=== PATIENT | female | born 1945 | race Caucasian/White ===

== ENCOUNTER 2022-11-24 06:27 | Emergency (ER) | payer MEDICARE, OTHER, SELFPAY ==
[2022-11-24 06:38] VITALS: BP 148/64; PULSE 62; RESP 18; TEMP 36.4; O2SAT 96; BMI 27.5
[2022-11-24] MEDS: Famotidine/PF 20 MG/2 ML VIAL IVPUSH (06:58)
[2022-11-24] MEDS: diphenhydrAMINE HCL 50 MG/ML VIAL IVPUSH (06:58)
[2022-11-24] MEDS: methylPREDNISolone Sod Succ 125 MG/2 ML VIAL IVPUSH (06:58)
--- NOTE | 2022-11-24 06:58 | ED.ALLEREA ---
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 She states she woke up with the right side of her tongue swollen and numb. She states around 04:00 she developed some difficulty swallowing and sensation of throat swelling. She feels that the anterior aspect of her neck is more swollen than usual. She denies any changes in her voice, shortness of breath, wheezing, lip swelling. She does not have any new medications or foods. She has history of similar reactions to Phenergan, Norvasc, and other medications. She is being followed by an leather sponger and was due for allergy testing today. She had a history of similar presentation last week and was recently on Benadryl for this. She denies any rashes. She has been on labetalol for her blood pressure with no allergic reactions noted. MD complaint: allergic reaction Onset (ago): hour(s) (8) Exposure: unknown Known history of allergy to: Lisinopril, multiple blood pressure medications Symptoms: difficulty swallowing and tongue swelling Severity: moderate Treatment prior to arrival: none Previous Allergic Reaction History: prior ED visit(s) and angioedema Related Data Previous Rx's Medication Instructions Recorded diphenhydramine HCl 25 mg capsule 50 mg PO TID #30 caps 11/24/22 (Benadryl) famotidine 40 mg tablet (Pepcid) 40 mg PO DAILY #7 tabs 11/24/22 prednisone 20 mg tablet 40 mg PO DAILY #10 tabs 11/24/22 Allergies Allergy/AdvReac Type Severity Reaction Status Date / Time amlodipine [From NORVASC] Allergy Unknown UNKNOWN Unverified 02/23/20 15:26 carvedilol [From COREG] Allergy Unknown DIFFICULTY Unverified 02/23/20 15:26 BREATHING lisinopril [LISINOPRIL] Allergy Unknown ANGIOEDEMA Unverified 02/23/20 15:26 mold [MOLD] Allergy Unknown DIFFICULTY Unverified 02/23/20 15:26 BREATHING promethazine [From PHENERGAN] Allergy Unknown ANGIOEDEMA Unverified 02/23/20 15:26 DANDER Allergy Unknown DIFFICULTY Uncoded 02/23/20 15:26 BREATHING Review of Systems Review of Systems: Yes all other systems are reviewed and are negative [facility] Social History Social History Alcohol intake: never Smoked in Last 30 Days: No Use of substances other than those prescribed or required for medical reasons: No Advance Directives: Yes Advance Directives Information Provided: No Advance Directives on File: No Physical Exam ED Vital Signs: Vital Signs - 24 hr 11/24/22 06:38 11/24/22 08:09 Temperature 97.5 F Pulse Rate 62 55 Respiratory Rate 18 15 Blood Pressure 148/64 H 114/50 L Pulse Oximetry 96 96 Oxygen Delivery Method Room Air Room Air BMI result Body Mass Index 27.5 Appearance: Alert. Oriented X3. No acute distress. Head: normocephalic, atraumatic. Eyes: Pupils equal, round and reactive to light. ENT: normal external inspection. no lip swelling. trace tongue swelling on the right side with red area c/w bite injury. airway patient. no sublingual swelling, normal voice. No tonsillar swelling or exudate. Neck: Trace anterior neck swelling proximally. Neck supple. CVS: Normal heart rate and rhythm. Pulses normal. Respiratory: No respiratory distress. Breath sounds normal. Abdomen: Soft and nontender. +BS x4 Skin: Skin warm and dry. Normal skin color. Normal skin turgor. No rashes. Extremities: No lower extremity edema. No joint swelling. Neuro/psych: Oriented X 3. No motor deficit. No sensory deficit. CN II-XII intact. Normal speech and cognition. Course Reevaluation(s) Reevaluation #1: Patient reported significant improvement in her symptoms after a dose of IV Solu-Medrol, Benadryl, Pepcid. Her tongue swelling is resolved. She still feels slight difference in her throat but her airway is patent and she is breathing comfortably. At this time comfortable discharge home, she has been monitored in the ER for over 2 hours with movement in her symptoms. She will be discharged with oral prednisone and Benadryl. Medications Administered Discontinued Medications Generic Name Dose Route Start Last Admin Trade Name Freq PRN Reason Stop Dose Admin Diphenhydramine HCl 50 mg 11/24/22 06:49 11/24/22 06:58 Diphenhydramine Hcl 50 Mg/Ml Vial IVPUSH 11/24/22 06:50 50 mg ONCE ONE Administration Famotidine 20 mg 11/24/22 06:49 11/24/22 06:58 Famotidine/Pf 20 Mg/2 Ml Vial IVPUSH 11/24/22 06:50 20 mg ONCE ONE Administration Methylprednisolone Sodium Succinate 125 mg 11/24/22 06:49 11/24/22 06:58 Methylprednisolone Sod Succ 125 Mg/2 Ml Vial IVPUSH 11/24/22 06:50 125 mg ONCE ONE Administration Medical Decision Making Medical Decision Making MDM Narrative: 77-year-old female with history angioedema and multiple allergic reactions manifesting with tongue swelling and difficulty swallowing presents the ER for evaluation of tongue swelling and difficulty swallowing that started 8 hours ago. She is unclear of the etiology. She has been on labetalol for blood pressure for several years. She has history of these types of reactions to clonidine, Norvasc, Phenergan in the past. She is following closely with an leather sponger. She is due for allergy testing but needs to be off of the Benadryl for 5 days. On arrival to the ER her vital signs are stable. Her airway is patent and she is speaking and normal, complete sentences. She has trace swelling of the right tongue, and sensation of throat swelling, difficulty swallowing. Her Lungs are clear without any wheezing. Given her symptoms, IV was established, Solu-Medrol Benadryl, Pepcid was given. She was monitored the ER for over 2 hours. Patient's symptoms improved significantly and she was deemed stable for discharge home with close outpatient follow-up with her leather sponger. Will discharge home with prednisone, Benadryl, Pepcid. She was given strict return precautions and is stable for DC Differential Diagnosis Differential Diagnoses: The differential diagnosis associated with the presentation includes anaphylaxis, angioedema, allergic reaction Admission/Observation Consideration of admission/observation: Escalation of care including admission/observation considered concern for airway involvement, admission considered Prescription Management I considered prescription management with: Other (Prednisone and antihistamines) Chronic Conditions Patient?s care impacted by: Other (Recurrent allergic reactions) Critical Care Time Critical Care Time Critical Care Time: Yes Total Critical Care Time: 35 Attestation: I have personally provided critical care time exclusive of time spent on separately billable procedures. Time includes close bedside monitoring, cardiopulmonary monitoring and monitoring for potential decompensation. Intervention performed as documented. Discharge Plan Discharge Clinical Impression: Allergic reaction Patient Disposition: Home, Self-Care Instructions: General Allergic Reaction (ED) Additional Instructions: take the prescribed prednisone, benadryl and pepcid as directed follow up with your leather sponger. If you develop new or worsening symptoms call 911 or come back to the ER for further evaluation. Prescriptions: New prednisone 20 mg tablet 40 mg PO DAILY Qty: 10 0RF diphenhydramine HCl [Benadryl] 25 mg capsule 50 mg PO TID Qty: 30 0RF famotidine [Pepcid] 40 mg tablet 40 mg PO DAILY Qty: 7 0RF Interventions: ED Discharge Assessment Last Done: 11/24/22 10:00 Discharge Date/Time: 11/24/22 10:01
--- OUTSIDE RECORDS SUMMARY | 2022-11-24 07:23 | XMS_ITS | Continuity of Care Document ---
Author Name Unknown Organization [facility] Address [address] [place] [address], [address] [place] [address]- Care Team Providers Care Manager Strategy & Account Name Role Phone Hai Mayen MD Primary Care Physician [facility] [id number] Date(s): 01/22/22 - 02/21/22 [facility] [address] [place] [address], [address] [place], [place] [address] Attending Physician: Admtr, Ar8 Admitting Physician: Admtr, ArMerary Referring Physician: Admtr, Ar8 Allergies, Adverse Reactions, Alerts Substance Reaction Severity Status Sulfur Active Medications Lisinopril By Mouth, Daily, 0 Refills, Maintenance Start Date: 09/27/12 Status: Ordered Care Team Personnel Name: Hai Mayen MD Address: [address] [place] [address]
--- NOTE | 2022-11-24 07:31 | PC.NURSE ---
PT SPEECH REMAINS THICK, NO SWALLOW CONCERNS, SCREENING COMPLETED, SHE WAS PLACED ON THE TELE MONITOR, REMAINS A+O, NO RESPIRATORY INVOLVEMENT
[2022-11-24 08:09] VITALS: BP 114/50; PULSE 55; RESP 15; O2SAT 96
== END 2022-11-24 10:01 | disposition home or self-care (01) ==
PROVIDERS: Emergency Provider Student in an Organized Health Care Education/Training Program; PCP Family Medicine
DX: L50.0 Allergic urticaria (principal)
CPT/HCPCS: 96374; 96375; 99284; J1200; J2930

== ENCOUNTER 2023-01-22 21:06 | Emergency (ER) | payer MEDICARE, OTHER, SELFPAY ==
--- NOTE | 2023-01-22 21:15 | PC.NURSE ---
pt came into triage stating she is covid+ and asking if she needs the paxlovid medication since she is over 65. this RN educated the patient on the paxlovid medication and how it is typically prescribed for high risk patients over 65 with covid+ (i.e. Hx lung issues etc.). pt states she has no lung problems, no significant medical history, no Hx asthma, etc. this RN told patient she is more than welcome to wait and be seen by one of the providers in the back and request the medication from them but patient states she does not think they really need it as it is day 4 of exposure and patient is not having any chest pains, shortness of breath, or oxygenation issues, etc.. pt states if things worsen she will return to ER or call her pcp but as of now she does not want to wait to be seen as she is asymptomatic, ambulatory with no issues, no respiratory compromise,. A&Ox4.
== END 2023-01-22 21:20 | disposition left against medical advice (07) ==
PROVIDERS: Emergency Provider Emergency Medicine
DX: U07.1 COVID-19 (principal)

== ENCOUNTER 2023-10-03 01:48 | Emergency (ER) | payer MEDICARE, OTHER, SELFPAY ==
--- NOTE | 2023-10-03 | ECG_ITS ---
Test Reason : DYSPENIA Blood Pressure : / mmHG Vent. Rate : 057 BPM Atrial Rate : 057 BPM P-R Int : 164 ms QRS Dur : 076 ms QT Int : 468 ms P-R-T Axes : 055 019 049 degrees QTc Int : 455 ms Sinus bradycardia Low voltage QRS Nonspecific T wave abnormality Abnormal ECG No previous ECGs available Referred By: Andreia Garcia Electronically Signed By:SKYLER THIBODEAUX MD
[2023-10-03 01:59] VITALS: BP 143/58; BP 160/90; PULSE 61; PULSE 80; RESP 14; TEMP 36.4; O2SAT 98; BMI 28.0
[2023-10-03 02:01] VITALS: BP 143/58; PULSE 61; RESP 14; TEMP 36.4; O2SAT 98
--- NOTE | 2023-10-03 02:18 | ED_ITS ---
HPI - General Adult General Chief complaint: Dyspnea Stated complaint: SOB Time Seen by Provider: 10/03/23 01:55 Source: patient and EMS Mode of arrival: EMS Limitations: no limitations History of Present Illness HPI narrative: Patient comes to the emergency room complaining of throat swelling. 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 Patient states that she is allergic to certain blood pressure medication, and is being tested for some environmental allergies. Patient states that approximately 3 hours ago, patient started feeling a bit of swelling around her throat. Patient states that she took Zyrtec and Pepcid at home. Patient states that she has no difficulty breathing or swallowing. He is feels that there is a lump in her throat. Denies swelling anywhere else. Related Data Previous Rx's ?Medication ?Instructions ?Recorded diphenhydramine HCl 25 mg capsule 50 mg (2 x 25 mg) PO TID #30 caps 11/24/22 (Benadryl) famotidine 40 mg tablet (Pepcid) 40 mg PO DAILY #7 tabs 11/24/22 prednisone 20 mg tablet 40 mg (2 x 20 mg) PO DAILY #10 tabs 11/24/22 diphenhydramine HCl 25 mg capsule 50 mg (2 x 25 mg) PO TID PRN 10/03/23 (Benadryl) allergic reaction #14 caps famotidine 40 mg tablet (Pepcid) 40 mg PO BID PRN allergic reaction 10/03/23 #14 tabs Allergies Allergy/AdvReac Type Severity Reaction Status Date / Time amlodipine [From NORVASC] Allergy Unknown UNKNOWN Verified 10/03/23 02:01 carvedilol [From COREG] Allergy Unknown DIFFICULTY Verified 10/03/23 02:01 BREATHING lisinopril [LISINOPRIL] Allergy Unknown ANGIOEDEMA Verified 10/03/23 02:01 mold [MOLD] Allergy Unknown DIFFICULTY Verified 10/03/23 02:01 BREATHING promethazine [From PHENERGAN] Allergy Unknown ANGIOEDEMA Verified 10/03/23 02:01 DANDER Allergy Unknown DIFFICULTY Uncoded 10/03/23 02:01 BREATHING Review of Systems 2 Review of Systems: Constitutional : No Weight loss, No Fever, No Chills, No Night Sweats, No Fatigue, No Malaise ENT/Mouth : No Hearing loss, complaining of throat discomfort, No Ear Pain, No Nasal Congestion, No Sinus Pain, No Hoarseness, No sore throat, No Rhinorrhea, No Swallowing Difficulty Eyes: No Eye Pain, No Swelling, No Redness, No Foreign Body, No Discharge, No Vision Changes Cardiovascular : No Chest Pain, No SOB, No Dyspnea on Exertion, No Orthopnea, No Edema, No Palpitations Respiratory : No Cough, No Sputum, No Wheezing, No Smoke Exposure, No Dyspnea Gastrointestinal : No Nausea, No Vomiting, No Diarrhea, No Constipation, No abdominal Pain, No Hematochezia, No Melena Genitourinary : no irregular bleeding, No Dysuria, No Urinary Frequency, No Hematuria, No Urinary Incontinence, No Urgency, No Flank Pain, No Urinary Flow Changes, No Hesitancy Musculoskeletal : No joint pain, No Myalgias, No Joint Swelling Skin : No Skin Lesions, No rash Neuro : No Weakness, No Numbness, No Paresthesias, No Loss of Consciousness, No Dizziness, No Headache Psych : No Anxiety/Panic, No Depression, No SI/HI/AH/VH, No Social Issues, Heme/Lymph: No Bruising, No Bleeding,No Lymphadenopathy Endocrine : No Polyuria, No Polydipsia, No Temperature Intolerance [facility] Past Medical History Medical History (Updated 10/03/23 @ 05:54 by Andreia Garcia MD) Angioedema Social History Social History Alcohol intake: never Smoked in Last 30 Days: No Use of substances other than those prescribed or required for medical reasons: No Advance Directives: No Advance Directives Information Provided: Yes Do you have a plan to hurt others: No Plan Physical Exam ED Vital Signs: Vital Signs - 24 hr 10/03/23 01:59 10/03/23 02:01 10/03/23 03:44 Temperature 97.6 F 97.6 F 97.4 F Pulse Rate 61 61 59 Respiratory Rate 14 14 12 Blood Pressure 143/58 H 143/58 H 127/43 L Pulse Oximetry 98 98 96 Oxygen Delivery Method Room Air Room Air Room Air BMI result Body Mass Index 28.0 Const Other: Appearance: Alert. Oriented X3. No acute distress. Eyes: Pupils equal, round and reactive to light. ENT: Pharynx seems to be a bit edematous, no obvious airway obstruction. Patient is swallowing without difficulty and breathing within normal limits Neck: Normal inspection. Neck supple. No lymph nodes noted. No crepitus CVS: Normal heart rate and rhythm. Pulses normal. Normal S1 and S2 Respiratory: No respiratory distress. Breath sounds normal. No Wheezing. No rales Abdomen: Soft and nontender. No rigidity. No distention. Skin: Skin warm and dry. Normal skin color. Normal skin turgor. Extremities: No lower extremity edema. No Lacerations. No Rash Neuro: Oriented X 3. No motor deficit. No sensory deficit. Moving all extremities. No slurred speech. CN 2 through 12 grossly intact Psych: calm, cooperative, normal affect Course Course Course Narrative: -patient given IV Pepcid and Benadryl. Patient declined Solu-Medrol or prednisone p.o.. Medications Administered Discontinued Medications Generic Name Dose Route Start Last Admin Trade Name Freq PRN Reason Stop Dose Admin Diphenhydramine HCl 50 mg 10/03/23 02:14 10/03/23 02:29 Diphenhydramine Hcl 50 Mg/Ml Vial IVPUSH 10/03/23 02:15 50 mg ONCE ONE Administration Famotidine 20 mg 10/03/23 02:14 10/03/23 02:29 Famotidine/Pf 20 Mg/2 Ml Vial IVPUSH 10/03/23 02:15 20 mg ONCE ONE Administration Medical Decision Making Medical Decision Making MDM Narrative: -patient feeling much better, states that she is still has a little sensation of something in her throat. However, she feels much more improved. Denies any trouble swallowing, no trouble breathing. Patient states that she overall improved significantly. -oropharynx looks normal, uvula midline -I discussed with the patient that ideally she should be receiving Solu-Medrol as well, patient adamant that she does not want it. Discussed with the patient that she received the last time she was here, but patient states that this time her symptoms are less severe and would like to skip it altogether. -my interpretation of labs: Patient's potassium slightly decreased, patient agreeable to take p.o. potassium. Differential Diagnosis Differential Diagnoses: The differential diagnosis associated with the presentation includes (Angioedema, allergic reaction) Admission/Observation Consideration of admission/observation: Escalation of care including admission/observation considered (Given patient's history in symptoms, admission was considered) Lab Data MDM Lab Attestation statement: I reviewed the patient's lab results. 10/03/23 02:36 10/03/23 02:36 Labs: Lab Results 10/03/23 Range/Units 02:36 WBC 11.1 H (4.8-10.8) X10*3/uL RBC 4.27 (4.20-5.50) X10*6/uL Hgb 13.2 (12.0-16.0) g/dl Hct 37.6 (37.0-47.0) % MCV 88.1 (80.0-98.0) fL MCH 30.9 (27.0-33.0) pg MCHC 35.1 H (31.0-35.0) g/dl RDW 13.1 (11.0-16.0) % Plt Count 146 L (160-400) X10*3/uL MPV 10.5 (9.4-12.3) fL Immature Gran % (Auto) 0.3 (0.0-0.4) % Neut % (Auto) 71.4 (45-73) % Lymph % (Auto) 16.1 L (20-40) % Scott % (Auto) 9.8 (2-11) % Eos % (Auto) 1.9 (0-4) % Baso % (Auto) 0.5 (0-2) % Lymph # (Auto) 1.8 (1.2-4.9) X10*3/uL Scott # (Auto) 1.1 (0.1-1.2) X10*3/uL Eos # (Auto) 0.2 (0.0-0.4) X10*3/uL Baso # (Auto) 0.1 (0.0-0.2) X10*3/uL Abs Immat Gran (auto) 0.03 (0.00-0.03) X10*3/uL Absolute Neuts (auto) 7.9 (2.0-8.3) x10*3/uL Absolute Nucleated RBC 0.000 (0.0-0.012) X10*3/uL Nucleated RBC % (auto) 0.0 (0.0-0.2) /100WBC Sodium 141 (135-145) mmol/L Potassium 3.1 L (3.3-5.1) mmol/L Chloride 102 (96-108) mmol/L Carbon Dioxide 26 (22-29) mmol/L Anion Gap 16 (12-20) BUN 19 H (9-16) mg/dL Creatinine 0.97 (0.5-1.4) mg/dL Estim Creat Clear Calc 44.3 Estimated GFR 56 Random Glucose 106 (60-115) mg/dL Fasting Glucose 107 H (60-99) mg/dL Calcium 9.4 (8.4-10.2) mg/dL Total Bilirubin 0.5 (0.0-1.0) mg/dL AST 27 (5-31) U/L ALT 26 (0-31) U/L Alkaline Phosphatase 60 (39-117) U/L Total Protein 7.1 (6.5-8.0) g/dL Albumin 4.0 (3.5-5.0) g/dL Critical Care Time Critical Care Time Critical Care Time: Yes Total Critical Care Time: 45 Attestation: I have personally provided critical care time. Time includes review of lab data, radiology results, discussion with consultants, and monitoring for potential decompensation. Intervention performed as documented. Discharge Plan Discharge Clinical Impression: Angioedema, Acute hypokalemia Patient Disposition: Home, Self-Care Instructions: Angioedema (ED) Additional Instructions: Please follow-up with your primary care physician tomorrow. If you have any worsening or new symptoms, please return to the emergency room or call 911 Prescriptions: New diphenhydramine HCl [Benadryl] 25 mg capsule 50 mg PO TID PRN (Reason: allergic reaction) Qty: 14 0RF famotidine [Pepcid] 40 mg tablet 40 mg PO BID PRN (Reason: allergic reaction) Qty: 14 0RF No Action prednisone 20 mg tablet 40 mg PO DAILY Qty: 10 0RF diphenhydramine HCl [Benadryl] 25 mg capsule 50 mg PO TID Qty: 30 0RF famotidine [Pepcid] 40 mg tablet 40 mg PO DAILY Qty: 7 0RF Print Language: Niuean
[2023-10-03] MEDS: Famotidine/PF 20 MG/2 ML VIAL IVPUSH (02:29)
[2023-10-03] MEDS: diphenhydrAMINE HCL 50 MG/ML VIAL IVPUSH (02:29)
[2023-10-03 02:41] LABS: MANUAL DIFF FLAG NO
[2023-10-03 02:42] LABS: Basophils Absolute Auto 0.1 X10*3/uL (0.0-0.2); Basophils Percent Auto 0.5 % (0-2); Eosinophils Absolute Auto 0.2 X10*3/uL (0.0-0.4); Eosinophils Percent Auto 1.9 % (0-4); Hematocrit 37.6 % (37.0-47.0); Hemoglobin 13.2 g/dl (12.0-16.0); Imm Gran Abs Auto 0.03 X10*3/uL (0.00-0.03); Imm Gran Pct Auto 0.3 % (0.0-0.4); Lymphocytes Absolute Auto 1.8 X10*3/uL (1.2-4.9); Lymphocytes Percent Auto 16.1 % (20-40); Mean Corpuscular HGB Conc 35.1 g/dl (31.0-35.0); Mean Corpuscular Hemoglobin 30.9 pg (27.0-33.0); Mean Corpuscular Volume 88.1 fL (80.0-98.0); Mean Platelet Volume 10.5 fL (9.4-12.3); Monocytes Absolute Auto 1.1 X10*3/uL (0.1-1.2); Monocytes Percent Auto 9.8 % (2-11); Neutrophils Absolute Auto 7.9 x10*3/uL (2.0-8.3); Neutrophils Percent Auto 71.4 % (45-73); Platelet Count 146 X10*3/uL (160-400); Red Blood Count 4.27 X10*6/uL (4.20-5.50); Red Cell Distribution Width 13.1 % (11.0-16.0); White Blood Count 11.1 X10*3/uL (4.8-10.8)
[2023-10-03 02:56] LABS: Alanine Aminotransferase 26 U/L (0-31); Alkaline Phosphatase 60 U/L (39-117); Anion Gap 16 (12-20); Aspartate Amino Transferase 27 U/L (5-31); Bilirubin Total 0.5 mg/dL (0.0-1.0); Blood Urea Nitrogen 19 mg/dL (9-16); Calcium 9.4 mg/dL (8.4-10.2); Carbon Dioxide 26 mmol/L (22-29); Chloride 102 mmol/L (96-108); Creatinine Clr Calc Pharmacy 44.3; Estimated Glomerular Filt Rate 56; Glucose Fasting 107 mg/dL (60-99); Glucose Random 106 mg/dL (60-115); Potassium 3.1 mmol/L (3.3-5.1); Sodium 141 mmol/L (135-145); Total Protein 7.1 g/dL (6.5-8.0)
[2023-10-03 03:44] VITALS: BP 127/43; PULSE 59; RESP 12; TEMP 36.3; O2SAT 96
[2023-10-03] MEDS: Potassium Chloride Packet 20 MEQ PACKET 40 MEQ PO (05:56)
[2023-10-03 06:04] VITALS: BP 127/43; PULSE 59; RESP 11; TEMP 36.3; O2SAT 96
== END 2023-10-03 06:05 | disposition home or self-care (01) ==
PROVIDERS: Emergency Provider Emergency Medicine
DX: T78.3XXA Angioneurotic edema, initial encounter (principal); E87.6 Hypokalemia
CPT/HCPCS: 36415; 80048; 80053; 85025; 93005; 96374; 96375; 99284; 99285; J1200

== ENCOUNTER → 2023-10-03 02:19 | Outpatient (BNV) | payer MEDICARE, OTHER, SELFPAY | PROVIDERS: Emergency Provider Emergency Medicine; Visit Provider Internal Medicine Cardiovascular Disease | DX: R94.31 Abnormal electrocardiogram [ECG] [EKG] (principal) | CPT/HCPCS: 93010 ==

== ENCOUNTER 2023-10-08 02:21 | Emergency (ER) | payer MEDICARE, OTHER, SELFPAY ==
[2023-10-08 02:24] VITALS: BP 143/61; PULSE 69; RESP 16; TEMP 36.9; O2SAT 96; BMI 26.0
--- NOTE | 2023-10-08 02:45 | ED.ALLEREA ---
HPI - Allergic Reaction General Chief complaint: Allergic Reaction Stated complaint: swollen throat, allergic reaction Time Seen by Provider: 10/08/23 02:36 Source: patient and family () Mode of arrival: ambulatory Limitations: no limitations History of Present Illness HPI narrative: 78-year-old female who presents emergency department for evaluation of lip , face swelling and a hoarse voice which began at around 19:45 hours. The patient had a similar presentation on 10/03/2023. I did review the no and the patient was treated with Benadryl 50 mg IV and famotidine 20 mg IV. The provider wanted to give the patient Solu-Medrol but she insisted that she was allergic to this medication. I did discuss this with her and she told me that she was given pills which will may have been prednisone the last time she had an allergic reaction and she believes that it made her symptoms worse. I did tell her that Solu-Medrol (methylprednisolone) is different than prednisone and that she would benefit from this drug and that may be by not getting it last time this is why she is continuing to have an allergic reaction. The patient denied pruritic rash, urticaria, shortness of breath. She states that she is being seeing an manager medicare marketing in his being worked up for angioedema and being evaluated for other possible allergens. She has an appointment to see her manager medicare marketing today. She states that her manager medicare marketing prescribed Zyrtec twice a day and Pepcid twice a day for her allergic reactions and she has been compliant with these medications. She takes labetalol and hydrochlorothiazide for blood pressure in his not on an VAL-inhibitor. Related Data Previous Rx's ?Medication ?Instructions ?Recorded diphenhydramine HCl 25 mg capsule 50 mg (2 x 25 mg) PO TID #30 caps 11/24/22 (Benadryl) famotidine 40 mg tablet (Pepcid) 40 mg PO DAILY #7 tabs 11/24/22 prednisone 20 mg tablet 40 mg (2 x 20 mg) PO DAILY #10 tabs 11/24/22 diphenhydramine HCl 25 mg capsule 50 mg (2 x 25 mg) PO TID PRN 10/03/23 (Benadryl) allergic reaction #14 caps famotidine 40 mg tablet (Pepcid) 40 mg PO BID PRN allergic reaction 10/03/23 #14 tabs methylprednisolone 4 mg tablets in 4 mg PO DAILY #21 ea 10/08/23 a dose pack (Medrol (Kennedy)) Allergies Allergy/AdvReac Type Severity Reaction Status Date / Time amlodipine [From NORVASC] Allergy Unknown UNKNOWN Verified 10/08/23 02:30 carvedilol [From COREG] Allergy Unknown DIFFICULTY Verified 10/08/23 02:30 BREATHING lisinopril [LISINOPRIL] Allergy Unknown ANGIOEDEMA Verified 10/08/23 02:30 mold [MOLD] Allergy Unknown DIFFICULTY Verified 10/08/23 02:30 BREATHING promethazine [From PHENERGAN] Allergy Unknown ANGIOEDEMA Verified 10/08/23 02:30 DANDER Allergy Unknown DIFFICULTY Uncoded 10/08/23 02:30 BREATHING Review of Systems Review of Systems: Yes all other systems are reviewed and are negative [facility] Past Medical History [facility] Narrative: Past medical history: Hypertension, frequent allergic reactions. Social history: She denies tobacco, alcohol and drug use. Medical History (Updated 10/08/23 @ 06:14 by Ty Gross MD) Angioedema Social History Social History Alcohol intake: never Use of substances other than those prescribed or required for medical reasons: No Advance Directives: No Advance Directives Information Provided: No Do you have a plan to hurt others: No Plan Physical Exam ED Vital Signs: Vital Signs - 24 hr 10/08/23 02:24 10/08/23 05:08 Temperature 98.5 F 98.0 F Pulse Rate 69 59 Respiratory Rate 16 18 Blood Pressure 143/61 H 118/54 L Pulse Oximetry 96 96 Oxygen Delivery Method Room Air Room Air BMI result Body Mass Index 26.0 Vital signs revealed elevated respiratory of 16 and elevated blood pressure of 143/61. Exam: General: Awake, alert in no distress, she does have a hoarse sounding voice Head: Patient has significant swelling of the right side of her face including her lip, cheek and forehead. EENT: Mouth revealed moist membranes with no erythema or exudates, uvula is midline, she has no trismus Neck: Supple, no adenopathy Lung: breath sounds symmetric, no wheezing, rales or rhonchi Chest: symmetric movement, nontender Heart: regular rate and rhythm, normal S1, S2 no murmurs or rubs Abdomen: soft, non-tender, nondistended, normal bowel sounds Back: no vertebral tenderness, no CVAT Extremities: no deformities, moves all extremities symmetrically Neuro: Awake, alert, oriented, normal speech, cranial nerves intact, moves all extremities symmetrically Psych: Pleasant, cooperative Medications Administered Discontinued Medications Generic Name Dose Route Start Last Admin Trade Name Buster PRN Reason Stop Dose Admin Diphenhydramine HCl 50 mg 10/08/23 02:50 10/08/23 03:13 Diphenhydramine Hcl 50 Mg/Ml Vial IVPUSH 10/08/23 02:51 50 mg ONCE STA Administration Famotidine 20 mg 10/08/23 02:50 10/08/23 03:13 Famotidine/Pf 20 Mg/2 Ml Vial IVPUSH 10/08/23 02:51 20 mg ONCE ONE Administration Methylprednisolone Sodium Succinate 125 mg 10/08/23 02:50 10/08/23 03:13 Methylprednisolone Sod Succ 125 Mg/2 Ml Vial IVPUSH 10/08/23 02:51 125 mg ONCE ONE Administration Medical Decision Making Medical Decision Making MDM Narrative: 78-year-old female who presents emergency department history of hypertension, frequent allergic reactions presents emergency department for evaluation of lip , face swelling and a hoarse voice which began at around 19:45 hours. Patient also seen in the emergency department on 10/03/2023 for similar allergic reaction of that time she refused IV steroids/Solu-Medrol. Physical examination did reveal an elevated respiratory rate and elevated blood pressure, patient did have right-sided facial swelling consistent with allergic reaction/angioedema. Patient has a hoarse voice suggesting that she does have some posterior pharynx/pharyngeal edema. Patient did not have a pruritic rash or shortness of breath. Differential diagnosis: ?Includes but is not limited to acute allergic reaction, angioedema, adverse reaction to medications Following evaluation was ordered: CBC, CMP Patient was initially treated with the following: Solu-Medrol 125 mg IV, famotidine 20 mg IV, Benadryl 50 mg IV Course: 06:27 My interpretation patient's laboratory evaluation is as follows: CBC was normal. CMP was normal. The patient was observed in the emergency department for approximately 3 hours and during this time her angioedema/facial swelling improved. Her hoarse voice also improved. She did not have any rebound reaction. Patient did not require any IM epinephrine. Patient will be discharged home with Medrol Dosepak 4 mg pills, 6 pills on day 1 then decrease by 1 pill for total of 6 days. Patient was advised to follow-up with her manager medicare marketing for further evaluation and to return to the emergency department if her symptoms got worse. Admission/Observation Consideration of admission/observation: Escalation of care including admission/observation considered Lab Data MDM Lab Attestation statement: I reviewed the patient's lab results. 10/08/23 03:54 10/08/23 03:54 Labs: Lab Results 10/08/23 Range/Units 03:54 WBC 9.4 (4.8-10.8) X10*3/uL RBC 4.17 L (4.20-5.50) X10*6/uL Hgb 12.8 (12.0-16.0) g/dl Hct 37.1 (37.0-47.0) % MCV 89.0 (80.0-98.0) fL MCH 30.7 (27.0-33.0) pg MCHC 34.5 (31.0-35.0) g/dl RDW 12.9 (11.0-16.0) % Plt Count 161 (160-400) X10*3/uL MPV 10.3 (9.4-12.3) fL Immature Gran % (Auto) 0.5 H (0.0-0.4) % Neut % (Auto) 67.8 (45-73) % Lymph % (Auto) 19.3 L (20-40) % [place] % (Auto) 9.5 (2-11) % Eos % (Auto) 2.4 (0-4) % Baso % (Auto) 0.5 (0-2) % Lymph # (Auto) 1.8 (1.2-4.9) X10*3/uL [place] # (Auto) 0.9 (0.1-1.2) X10*3/uL Eos # (Auto) 0.2 (0.0-0.4) X10*3/uL Baso # (Auto) 0.1 (0.0-0.2) X10*3/uL Abs Immat Gran (auto) 0.05 H (0.00-0.03) X10*3/uL Absolute Neuts (auto) 6.4 (2.0-8.3) x10*3/uL Absolute Nucleated RBC 0.000 (0.0-0.012) X10*3/uL Nucleated RBC % (auto) 0.0 (0.0-0.2) /100WBC Sodium 140 (135-145) mmol/L Potassium 3.3 (3.3-5.1) mmol/L Chloride 102 (96-108) mmol/L Carbon Dioxide 26 (22-29) mmol/L Anion Gap 15 (12-20) BUN 17 H (9-16) mg/dL Creatinine 0.96 (0.5-1.4) mg/dL Estim Creat Clear Calc 43.2 Estimated GFR 56 Random Glucose 116 H (60-115) mg/dL Calcium 9.4 (8.4-10.2) mg/dL Total Bilirubin 0.6 (0.0-1.0) mg/dL AST 19 (5-31) U/L ALT 18 (0-31) U/L Alkaline Phosphatase 61 (39-117) U/L Total Protein 6.7 (6.5-8.0) g/dL Albumin 3.8 (3.5-5.0) g/dL Independent Historian Clinical information obtained from an independent historian. History obtained from or confirmed by: Spouse Chronic Conditions Patient?s care impacted by: Hypertension Discharge Plan Discharge Clinical Impression: Allergic reaction Patient Disposition: Home, Self-Care Instructions: General Allergic Reaction (ED) Additional Instructions: On presentation to the emergency department you had significant swelling of your face and lips with no swelling of your tongue. You also had a very hoarse voice suggesting that you had swelling of your throat as well. You were treated with Solu-Medrol (methylprednisolone) 125 mg IV, Benadryl (diphenhydramine) 50 mg IV and Pepcid (famotidine) 20 mg IV. You are monitored in the emergency department for approximately 3 hours and during this time your symptoms improved. I want you to continue taking your Zyrtec and famotidine as prescribed by your manager medicare marketing. Prescriptions: New methylprednisolone [Medrol (Kennedy)] 4 mg tablets,dose pack 4 mg PO DAILY Qty: 21 0RF Rx Instructions: Day 1 take 6 pills then decrease by 1 pill every day for total of 6 days No Action diphenhydramine HCl [Benadryl] 25 mg capsule 50 mg PO TID PRN (Reason: allergic reaction) Qty: 14 0RF famotidine [Pepcid] 40 mg tablet 40 mg PO BID PRN (Reason: allergic reaction) Qty: 14 0RF prednisone 20 mg tablet 40 mg PO DAILY Qty: 10 0RF diphenhydramine HCl [Benadryl] 25 mg capsule 50 mg PO TID Qty: 30 0RF famotidine [Pepcid] 40 mg tablet 40 mg PO DAILY Qty: 7 0RF Print Language: Pashto
[2023-10-08] MEDS: diphenhydrAMINE HCL 50 MG/ML VIAL IVPUSH (03:13)
[2023-10-08] MEDS: Famotidine/PF 20 MG/2 ML VIAL IVPUSH (03:13)
[2023-10-08] MEDS: methylPREDNISolone Sod Succ 125 MG/2 ML VIAL IVPUSH (03:13)
[2023-10-08 03:58] LABS: MANUAL DIFF FLAG NO
[2023-10-08 03:59] LABS: Basophils Absolute Auto 0.1 X10*3/uL (0.0-0.2); Basophils Percent Auto 0.5 % (0-2); Eosinophils Absolute Auto 0.2 X10*3/uL (0.0-0.4); Eosinophils Percent Auto 2.4 % (0-4); Hematocrit 37.1 % (37.0-47.0); Hemoglobin 12.8 g/dl (12.0-16.0); Imm Gran Abs Auto 0.05 X10*3/uL (0.00-0.03); Imm Gran Pct Auto 0.5 % (0.0-0.4); Lymphocytes Absolute Auto 1.8 X10*3/uL (1.2-4.9); Lymphocytes Percent Auto 19.3 % (20-40); Mean Corpuscular HGB Conc 34.5 g/dl (31.0-35.0); Mean Corpuscular Hemoglobin 30.7 pg (27.0-33.0); Mean Platelet Volume 10.3 fL (9.4-12.3); Monocytes Absolute Auto 0.9 X10*3/uL (0.1-1.2); Monocytes Percent Auto 9.5 % (2-11); Neutrophils Absolute Auto 6.4 x10*3/uL (2.0-8.3); Neutrophils Percent Auto 67.8 % (45-73); Platelet Count 161 X10*3/uL (160-400); Red Blood Count 4.17 X10*6/uL (4.20-5.50); Red Cell Distribution Width 12.9 % (11.0-16.0); White Blood Count 9.4 X10*3/uL (4.8-10.8)
[2023-10-08 04:13] LABS: Alanine Aminotransferase 18 U/L (0-31); Albumin Level 3.8 g/dL (3.5-5.0); Alkaline Phosphatase 61 U/L (39-117); Anion Gap 15 (12-20); Aspartate Amino Transferase 19 U/L (5-31); Bilirubin Total 0.6 mg/dL (0.0-1.0); Blood Urea Nitrogen 17 mg/dL (9-16); Calcium 9.4 mg/dL (8.4-10.2); Carbon Dioxide 26 mmol/L (22-29); Chloride 102 mmol/L (96-108); Creatinine Clr Calc Pharmacy 43.2; Estimated Glomerular Filt Rate 56; Glucose Random 116 mg/dL (60-115); Potassium 3.3 mmol/L (3.3-5.1); Sodium 140 mmol/L (135-145); Total Protein 6.7 g/dL (6.5-8.0)
[2023-10-08 05:08] VITALS: BP 118/54; PULSE 59; RESP 18; TEMP 36.7; O2SAT 96
--- NOTE | 2023-10-08 06:06 | PC.NURSE ---
pt assessed, right side of face and lips less swollen, pt reported she feels better
[2023-10-08 06:25] VITALS: BP 132/50; PULSE 60; RESP 11; TEMP 36.8; O2SAT 98
[2023-10-08 06:37] VITALS: BP 147/99; PULSE 95; RESP 16; TEMP 37.1; O2SAT 98
== END 2023-10-08 06:38 | disposition home or self-care (01) ==
PROVIDERS: Emergency Provider Emergency Medicine Emergency Medical Services
DX: K13.0 Diseases of lips (principal); R22.1 Localized swelling, mass and lump, neck; T88.6XXA Anaphylactic reaction due to adverse effect of correct drug or medicament properly administered, initial encounter; Z79.899 Other long term (current) drug therapy
CPT/HCPCS: 36415; 80053; 85025; 96374; 96375; 99284; J1200; J2919

== ENCOUNTER 2024-11-12 21:02 | Emergency (ER) | payer MEDICARE, OTHER, SELFPAY ==
--- NOTE | 2024-11-12 | ECG_ITS ---
Test Reason : DIZZINESS Blood Pressure : */* mmHG Vent. Rate : 73 BPM Atrial Rate : 73 BPM P-R Int : 146 ms QRS Dur : 86 ms QT Int : 434 ms P-R-T Axes : * 39 38 degrees QTcB Int : 478 ms Normal sinus rhythm Nonspecific ST abnormality Abnormal ECG When compared with ECG of 03-Oct-2023 02:19, No significant change was found Referred By: Anam Mcleod Electronically Signed By: HECTOR LYON
--- NOTE | ~2024-11-12 | CT_ITS ---
CLINICAL HISTORY: Lower abdominal pain CT abdomen and pelvis without contrast Comparison: None Findings: The lung bases are clear. There is a very small hiatal hernia. Patient is status post cholecystectomy. The liver, pancreas, spleen, adrenal glands, and kidneys are unremarkable. There is colonic diverticulosis. There is no evidence of acute diverticulitis. The appendix is normal. The remainder of the gastrointestinal tract is unremarkable. There is no free fluid or free air. Patient is status post hysterectomy. There is a pessary in the vagina. The bladder is unremarkable. There are no enlarged lymph nodes. The aorta is normal in diameter. There are degenerative changes of the lumbar spine. There is no fracture or suspicious lytic or sclerotic lesion. IMPRESSION: 1. No acute abnormality in the abdomen or pelvis. 2. Chronic findings as above. This document has been electronically signed by: Richard Vargas MD on 11/12/2024 23:17:30
[2024-11-12 21:16] VITALS: BP 126/68; PULSE 73; O2SAT 95
[2024-11-12 21:20] VITALS: BP 108/44; PULSE 72; RESP 20; TEMP 37.8; O2SAT 96; BMI 25.1
[2024-11-12 22:17] LABS: Basophils Absolute Auto 0.1 X10*3/uL (0.0-0.2); Basophils Percent Auto 0.3 % (0-2); Eosinophils Percent Auto 0.1 % (0-4); Hemoglobin 12.6 g/dl (12.0-16.0); Mean Corpuscular Hemoglobin 30.7 pg (27.0-33.0); PLT CLUMP 1; Red Blood Count 4.11 X10*6/uL (4.20-5.50); SCAN SMEAR FLAG 1
[2024-11-12 22:19] LABS: Hematocrit 34.5 % (37.0-47.0); Imm Gran Abs Auto 0.11 X10*3/uL (0.00-0.03); Imm Gran Pct Auto 0.6 % (0.0-0.4); Lymphocytes Absolute Auto 1.1 X10*3/uL (1.2-4.9); Lymphocytes Percent Auto 5.9 % (20-40); MANUAL DIFF FLAG SCAN; Mean Corpuscular HGB Conc 36.5 g/dl (31.0-35.0); Mean Corpuscular Volume 83.9 fL (80.0-98.0); Mean Platelet Volume 10.8 fL (9.4-12.3); Monocytes Absolute Auto 2.1 X10*3/uL (0.1-1.2); Monocytes Percent Auto 11.2 % (2-11); Neutrophils Absolute Auto 15.7 x10*3/uL (2.0-8.3); Neutrophils Percent Auto 81.9 % (45-73); Red Cell Distribution Width 12.5 % (11.0-16.0)
--- NOTE | 2024-11-12 22:29 | ED_ITS ---
HPI - Abdominal Pain General Chief Complaint: General Medical Stated Complaint: N/V Time Seen by Provider: 11/12/24 21:19 Source: patient Mode of arrival: EMS Limitations: no limitations History of Present Illness ED Provider: HPI narrative: Patient's history of hypertension end-stage 3 CKD prediabetic status post cholecystectomy comes here for lower abdominal discomfort associated with nausea and vomiting for last 4 days patient's vomiting about 2 times a day pain is getting better but overall she does not feel good sometimes she feel dizzy and lightheaded with poor oral intake no diarrhea no fever no chills no urinary complaints Related Data Previous Rx's ?Medication ?Instructions ?Recorded diphenhydramine HCl 25 mg capsule 50 mg (2 x 25 mg) PO TID #30 caps 11/24/22 (Benadryl) famotidine 40 mg tablet (Pepcid) 40 mg PO DAILY #7 tabs 11/24/22 prednisone 20 mg tablet 40 mg (2 x 20 mg) PO DAILY #10 tabs 11/24/22 diphenhydramine HCl 25 mg capsule 50 mg (2 x 25 mg) PO TID PRN 10/03/23 (Benadryl) allergic reaction #14 caps famotidine 40 mg tablet (Pepcid) 40 mg PO BID PRN allergic reaction 10/03/23 #14 tabs methylprednisolone 4 mg tablets in 4 mg PO DAILY #21 ea 10/08/23 a dose pack (Medrol (Kennedy)) cefuroxime axetil 250 mg tablet 250 mg PO BID 7 days #14 tabs 11/13/24 ondansetron 4 mg disintegrating 4 mg PO Q6-8H PRN nausea and 11/13/24 tablet vomiting #7 tabs Allergies Allergy/AdvReac Type Severity Reaction Status Date / Time amlodipine [From NORVASC] Allergy Unknown UNKNOWN Verified 11/12/24 21:24 carvedilol [From COREG] Allergy Unknown DIFFICULTY Verified 11/12/24 21:24 BREATHING lisinopril [LISINOPRIL] Allergy Unknown ANGIOEDEMA Verified 11/12/24 21:24 mold [MOLD] Allergy Unknown DIFFICULTY Verified 11/12/24 21:24 BREATHING promethazine [From PHENERGAN] Allergy Unknown ANGIOEDEMA Verified 11/12/24 21:24 DANDER Allergy Unknown DIFFICULTY Uncoded 11/12/24 21:24 BREATHING Review of Systems Review of Systems Yes all other systems are reviewed and are negative [facility] Past Medical History Medical History Angioedema Social History Social History Alcohol intake: never Smoked in Last 30 Days: No Use of substances other than those prescribed or required for medical reasons: No Advance Directives: No Advance Directives Information Provided: No Physical Exam ED Vital Signs: Vital Signs - 24 hr 11/12/24 21:20 Temperature 100.1 F Pulse Rate 72 Respiratory Rate 20 Blood Pressure 108/44 L Pulse Oximetry 96 Oxygen Delivery Method Room Air BMI result Body Mass Index 25.1 Appearance: Alert. Oriented X3. No acute distress. Eyes: No pallor or icterus ENT: Pharynx normal. Oral Mucosa moist Neck: Normal inspection. Neck supple. CVS: Normal heart rate and rhythm. Pulses normal. Respiratory: No respiratory distress. Equal air entry bilateral, no wheezing/rales/rhonchi Abdomen: Soft and deep tenderness left lower quadrant no rebound tenderness or guarding Bowel sounds are present, no mass palpable, no CVA tenderness Skin: Skin warm and dry. Normal skin color. Normal skin turgor. Extremities: No lower extremity edema. No calf tenderness Neuro: Oriented X 3. No motor deficit. Medical Decision Making Medical Decision Making [facility] Narrative: Patient with gastroenteritis with vomiting workup showed patient has a UTI and hypokalemia which was replaced patient is feeling much better after treatment and IV antibiotics will discharge patient home on cefuroxime patient's CT scan of the abdomen was negative for acute Differential Diagnosis Differential Diagnoses: The differential diagnosis associated with the presentation includes Admission/Observation Consideration of admission/observation: Escalation of care including admission/observation considered Lab Data [facility] Lab Attestation statement: I reviewed the patient's lab results. 11/12/24 22:10 11/13/24 01:36 Labs: Lab Results 11/12/24 11/13/24 11/13/24 Range/Units 22:10 00:08 01:36 WBC 10.2 (4.8-10.8) X10*3/uL RBC 4.11 L (4.20-5.50) X10*6/uL Hgb 12.6 (12.0-16.0) g/dl Hct 34.5 L (37.0-47.0) % MCV 83.9 (80.0-98.0) fL MCH 30.7 (27.0-33.0) pg MCHC 36.5 H (31.0-35.0) g/dl RDW 12.5 (11.0-16.0) % Plt Count 118 L D (160-400) X10*3/uL MPV 10.8 (9.4-12.3) fL Immature Gran % (Auto) 0.6 H (0.0-0.4) % Neut % (Auto) 81.9 H (45-73) % Lymph % (Auto) 5.9 L (20-40) % [place] % (Auto) 11.2 H (2-11) % Eos % (Auto) 0.1 (0-4) % Baso % (Auto) 0.3 (0-2) % Lymph # (Auto) 1.1 L (1.2-4.9) X10*3/uL [place] # (Auto) 2.1 H (0.1-1.2) X10*3/uL Eos # (Auto) 0.0 (0.0-0.4) X10*3/uL Baso # (Auto) 0.1 (0.0-0.2) X10*3/uL Abs Immat Gran (auto) 0.11 H (0.00-0.03) X10*3/uL Absolute Neuts (auto) 15.7 H (2.0-8.3) x10*3/uL Absolute Nucleated RBC 0.000 (0.0-0.012) X10*3/uL Nucleated RBC % (auto) 0.0 (0.0-0.2) /100WBC Smear Tech's Comments VERIFIED Sodium 128 L 134 L (135-145) mmol/L Potassium 2.4 L* D 3.8 D (3.3-5.1) mmol/L Chloride 91 L 98 (96-108) mmol/L Carbon Dioxide 26 25 (22-29) mmol/L Anion Gap 13 15 (12-20) BUN 29 H 25 H (9-16) mg/dL Creatinine 1.44 H 1.19 (0.5-1.4) mg/dL Estim Creat Clear Calc 27.9 33.7 Estimated GFR 35 44 Random Glucose 162 H 141 H (60-115) mg/dL Lactic Acid 1.1 (0.5-2.0) mmol/L Calcium 8.5 D 7.7 L D (8.4-10.2) mg/dL Magnesium 1.9 (1.6-2.6) mg/dL Total Bilirubin 1.1 H (0.0-1.0) mg/dL AST 44 H (5-31) U/L ALT 32 H (0-31) U/L Alkaline Phosphatase 63 (39-117) U/L Total Protein 6.8 (6.5-8.0) g/dL Albumin 3.5 (3.5-5.0) g/dL Lipase 22 (8-78) U/L Urine Color Yellow Urine Appearance Turbid Urine pH 6.0 (5.0-9.0) Ur Specific [place] 1.010 (1.005-1.025) Urine Protein 100 (2+) H (Neg-Trace) mg/dL Urine Glucose (UA) Negative (Negative) mg/dL Urine Ketones Negative (Negative) mg/dL Urine Blood Moderate (2+) H (Negative) Urine Nitrite Negative (Negative) Ur Leukocyte Esterase Large (3+) H (Negative) Urine RBC 0-2 (0-2) /HPF Urine WBC >50 H (0-5) /HPF Ur Squamous Epith Cells 0-2 (0-2) /HPF Urine Bacteria 2+ (None Seen) Hyaline Casts 0-2 (0-2) /LPF Independent Interpretation I performed an independent interpretation of an: CT Scan Radiology Impression Discussion of test interpretation with radiology: I have reviewed the radiologist's reading. Medications Administered Discontinued Medications Generic Name Dose Route Start Last Admin Trade Name Freq PRN Reason Stop Dose Admin Ceftriaxone Sodium 1 gm 11/13/24 01:11 11/13/24 01:58 Ceftriaxone Sodium 1 Gm Vial IVPUSH 11/13/24 01:12 1 gm ONCE ONE Administration Sodium Chloride 1,000 mls @ 999 mls/hr 11/12/24 22:02 11/12/24 23:42 Ns IV 11/12/24 23:02 Infused .Q1H1M ONE Infusion Potassium Chloride 10 meq in 100 mls @ 100 mls/hr 11/12/24 22:45 11/13/24 01:49 Potassium Chloride/H20 IV 11/13/24 00:44 Infused Q1H BOLA Infusion Potassium Bicarbonate 50 meq 11/12/24 22:42 11/12/24 23:03 Potassium Bicarbonate/Cit Ac 25 Meq Tablet.Eff PO 11/12/24 22:43 50 meq ONCE ONE Administration Discharge Plan Discharge Clinical Impression: Viral gastroenteritis, Hypokalemia, Acute UTI Patient Disposition: Home, Self-Care Instructions: Potassium Content of Foods List (ED), Hypokalemia (ED), Acute Nausea and Vomiting (DC), Urinary Tract Infection in Older Adults (ED) Additional Instructions: Drink plenty of fluids Stop taking hydrochlorothiazide Have food containing more potassium Follow with your PCP and have labs rechecked in 1 week Your potassium level today was 2.4 repeat after replenishment was 3.8 Take antibiotics for your infection in the bladder and the nausea medicine as prescribed Prescriptions: New cefuroxime axetil 250 mg tablet 250 mg PO BID 7 Days Qty: 14 0RF ondansetron 4 mg tablet,disintegrating 4 mg PO Q6-8H PRN (Reason: nausea and vomiting) Qty: 7 0RF No Action diphenhydramine HCl [Benadryl] 25 mg capsule 50 mg PO TID PRN (Reason: allergic reaction) Qty: 14 0RF famotidine [Pepcid] 40 mg tablet 40 mg PO BID PRN (Reason: allergic reaction) Qty: 14 0RF methylprednisolone [Medrol (Kennedy)] 4 mg tablets,dose pack 4 mg PO DAILY Qty: 21 0RF Rx Instructions: Day 1 take 6 pills then decrease by 1 pill every day for total of 6 days prednisone 20 mg tablet 40 mg PO DAILY Qty: 10 0RF diphenhydramine HCl [Benadryl] 25 mg capsule 50 mg PO TID Qty: 30 0RF famotidine [Pepcid] 40 mg tablet 40 mg PO DAILY Qty: 7 0RF Interventions: ED Discharge Assessment Last Done: 11/13/24 02:46 Discharge Date/Time: 11/13/24 02:47 Print Language: Occitan
[2024-11-12 22:34] LABS: Lactic Acid 1.1 mmol/L (0.5-2.0)
[2024-11-12 22:35] LABS: Platelet Count 118 X10*3/uL (160-400); White Blood Count 10.2 X10*3/uL (4.8-10.8)
[2024-11-12 22:36] LABS: SLIDE REVIEW VERIFIED
[2024-11-12 22:37] VITALS: BP 112/46; PULSE 63; RESP 12; O2SAT 96
[2024-11-12] MEDS: 0.9 % Sodium Chloride 1,000 ML 999 ML IV (22:37)
[2024-11-12 22:38] LABS: Alanine Aminotransferase 32 U/L (0-31); Albumin Level 3.5 g/dL (3.5-5.0); Alkaline Phosphatase 63 U/L (39-117); Anion Gap 13 (12-20); Aspartate Amino Transferase 44 U/L (5-31); Bilirubin Total 1.1 mg/dL (0.0-1.0); Blood Urea Nitrogen 29 mg/dL (9-16); Calcium 8.5 mg/dL (8.4-10.2); Carbon Dioxide 26 mmol/L (22-29); Chloride 91 mmol/L (96-108); Creatinine Clr Calc Pharmacy 27.9; Estimated Glomerular Filt Rate 35; Glucose Random 162 mg/dL (60-115); Lipase 22 U/L (8-78); Potassium 2.4 mmol/L (3.3-5.1); Sodium 128 mmol/L (135-145); Total Protein 6.8 g/dL (6.5-8.0)
[2024-11-12 23:00] LABS: Magnesium 1.9 mg/dL (1.6-2.6)
[2024-11-12] MEDS: Potassium Chloride/H20 10 MEQ/100 ML PIGGYBACK 100 MEQ IV (23:02)
[2024-11-12] MEDS: Potassium Bicarbonate/Cit AC 25 MEQ TABLET.EFF 50 MEQ PO (23:03)
[2024-11-13] MEDS: Potassium Chloride/H20 10 MEQ/100 ML PIGGYBACK 100 MEQ IV (00:05)
[2024-11-13 00:14] LABS: Appearance Urine Turbid; Color Urine Yellow; Glucose Urine UA Negative (Negative); Leukocyte Esterase Urine Large (3+) (Negative); Nitrite Urine Negative (Negative); UMIC TRIGGER UACC YES; Urine Blood Moderate (2+) (Negative); Urine Ketones Negative (Negative); Urine Protein 100 (2+) mg/dL (Neg-Trace)
[2024-11-13 00:26] LABS: Bacteria Urine 2+ (None Seen); Hyaline Casts Urine 0-2 /LPF (0-2); RBC Urine 0-2 /HPF (0-2); Squamous Epithelial Cell Urine 0-2 /HPF (0-2); UACC Culture Trigger YES; WBC Urine >50 /HPF (0-5)
[2024-11-13 01:58] VITALS: BP 91/35; PULSE 70; RESP 20; TEMP 37; O2SAT 95
[2024-11-13] MEDS: cefTRIAXone sodium 1 GM VIAL IVPUSH (01:58)
[2024-11-13 02:04] LABS: Anion Gap 15 (12-20); Blood Urea Nitrogen 25 mg/dL (9-16); Calcium 7.7 mg/dL (8.4-10.2); Carbon Dioxide 25 mmol/L (22-29); Chloride 98 mmol/L (96-108); Creatinine Clr Calc Pharmacy 33.7; Estimated Glomerular Filt Rate 44; Glucose Random 141 mg/dL (60-115); Potassium 3.8 mmol/L (3.3-5.1); Sodium 134 mmol/L (135-145)
[2024-11-13 02:46] VITALS: BP 102/50; PULSE 70; RESP 20; TEMP 37; O2SAT 95
[2024-11-13 02:47] VITALS: BP 102/50
== END 2024-11-13 02:47 | disposition home or self-care (01) ==
PROVIDERS: Emergency Provider Internal Medicine; PCP Family Medicine
DX: A08.4 Viral intestinal infection, unspecified (principal); N39.0 Urinary tract infection, site not specified; E87.6 Hypokalemia; R11.2 Nausea with vomiting, unspecified; R10.30 Lower abdominal pain, unspecified; I12.9 Hypertensive chronic kidney disease with stage 1 through stage 4 chronic kidney disease, or unspecified chronic kidney disease; N18.30 Chronic kidney disease, stage 3 unspecified; Z79.899 Other long term (current) drug therapy
CPT/HCPCS: 36415; 74176; 80048; 80053; 81001; 83605; 83690; 83735; 85025; 87086; 87088; 87186; 93005; 96361; 96365; 96366; 96375; 99285; J0696; J3480

== ENCOUNTER → 2024-11-12 21:36 | Outpatient (BNV) | payer MEDICARE, OTHER, SELFPAY | PROVIDERS: Emergency Provider Internal Medicine; PCP Family Medicine; Visit Provider Internal Medicine | DX: R94.31 Abnormal electrocardiogram [ECG] [EKG] (principal); R42 Dizziness and giddiness | CPT/HCPCS: 93010 ==

== ENCOUNTER → 2024-11-12 22:02 | Outpatient (BNV) | payer MEDICARE, OTHER, SELFPAY | PROVIDERS: Emergency Provider Internal Medicine; PCP Family Medicine; Visit Provider Radiology Diagnostic Radiology | DX: K57.30 Diverticulosis of large intestine without perforation or abscess without bleeding (principal) | CPT/HCPCS: 74176 ==